=== PATIENT | male | born 1975 | race African-American/Black ===

== ENCOUNTER 2019-04-13 08:47 | Emergency (ER) | payer OTHER ==
[2019-04-13 08:54] VITALS: TEMP 98.2
[2019-04-13] MEDS ORDERED: AMOXIC-POT CLAV 875-125MG 1 EACH TAB PO STA (09:28)
--- NOTE | 2019-04-13 09:29 | ED ---
General Adult HPI - General Chief complaint: Upper Respiratory Infection Stated complaint: poss sinus infection Time Seen by Provider: 04/13/19 09:05 Source: patient Mode of arrival: ambulatory Limitations: no limitations - History of Present Illness Initial comments: Patient is a 43-year-old male presenting to emergency Department with a chief complaint of facial pressure and sinus congestion. He states his been going on for about 4-5 days now. She reports gradual increase in severity especially near the maxillary sinus region. He does report bilateral rhinorrhea that is greenish in color. He also reports a cough that no one on for the last 12 days. Denies any fevers or sweats or chills. Also reports a sore throat since his symptoms began. Reports taking [id number] symptomatically with minimal improvement. Over the last 4 days he is also complaining of intermittent dizziness for short periods of time but denies any hearing loss. Denies blurry vision, chest pain, shortness of breath one-sided weakness or paresthesias. - Related Data Allergies Allergy/AdvReac Type Severity Reaction Status Date / Time No Known Allergies Allergy Verified 04/13/19 09:31 Review of Systems ROS Statement: Those systems with pertinent positive or pertinent negative responses have been documented in the HPI. ROS Other: All systems not noted in ROS Statement are negative. Past Medical History Past Medical History: No Reported History History of Any Multi-Drug Resistant Organisms: None Reported Past Surgical History: No Surgical Hx Reported Past Psychological History: No Psychological Hx Reported Smoking Status: Never smoker Past Alcohol Use History: None Reported Past Drug Use History: None Reported General Exam Limitations: no limitations General appearance: alert, in no apparent distress Head exam: Present: atraumatic, normocephalic, normal inspection Eye exam: Present: normal appearance, PERRL, EOMI Pupils: Present: normal accommodation ENT exam: Present: normal exam, normal oropharynx (Frontomaxillary sinus tenderness. Uvula midline. No tonsillar erythema, enlargement or exudates.), mucous membranes moist, TM's normal bilaterally (Fluid behind bilateral tympanic members.), normal external ear exam Neck exam: Present: normal inspection, full ROM. Absent: lymphadenopathy Respiratory exam: Present: normal lung sounds bilaterally. Absent: wheezes Cardiovascular Exam: Present: regular rate, normal rhythm, normal heart sounds Extremities exam: Present: normal inspection, full ROM Back exam: Present: normal inspection, full ROM Neurological exam: Present: alert, oriented X3 Psychiatric exam: Present: normal affect, normal mood Skin exam: Present: warm, dry, intact, normal color Course Vital Signs 04/13/19 08:49 Temperature 98.2 F Pulse Rate 85 Respiratory 22 Rate Blood Pressure 136/88 O2 Sat by Pulse 96 Oximetry Medical Decision Making - Medical Decision Making Patient is a 43-year-old male presenting to emergency Department with chief complaint of sinus congestion and facial pressure. Exam patient does have moderate to severe tenderness at the maxillary sinus with mild to moderate tenderness on the frontal sinus. Patient does have greenish colored rhinorrhea. No lymphadenopathy or pharyngeal infection. Consultation patient is clear. Suspect the patient has sinus infection. He is not a smoker. I suspect the sore throat and cough secondary to postnasal drip. Patient given Augmentin in the ED and will be discharged with a 10 day course of Augmentin. He was advised to take [id number] Zyrtec. Positive Micah-Hallpike. No hearing loss. Patient also given meclizine for the intermittent vertigo which is suspect is secondary to severe sinusitis. Strict return parameters were thoroughly discussed with patient was understanding and agreeable. Case discussed with physician. Disposition Clinical Impression: Sinusitis, Sinus congestion, Cough, Sinus headache Disposition: HOME SELF-CARE Condition: Stable Instructions (If sedation given, give patient instructions): Sinusitis (ED) Additional Instructions: Please take prescribed medication as directed. Please follow with primary care. Please return to emergency department if symptoms worsen. Is patient prescribed a controlled substance at d/c from ED?: No Referrals: None,Stated [Primary Care Provider] - 1-2 days Time of Disposition: 09:43
[2019-04-13 09:58] VITALS: BP 135/82; PULSE 78; RESP 20
== END 2019-04-13 10:00 | disposition home or self-care (01) ==
LOC: EC 08:47
DX: J32.9 Chronic sinusitis, unspecified (principal)
CPT/HCPCS: 99283